=== PATIENT | female | born 1955 | race Caucasian/White ===

== ENCOUNTER 2019-02-06 17:35 | Inpatient (IN) | payer BC ==
[~2019-02-06] VITALS: Ht 172.7 cm; Wt 74.8 kg
[2019-02-06] MEDS ORDERED: SODIUM CHLORIDE 0.9% 1,000 ML IV ONE (19:53)
[2019-02-06] MEDS ORDERED: LORAZEPAM 0.5MG TABLET PO PRN (21:00)
[2019-02-06] MEDS ORDERED: CLONIDINE 0.1MG TABLET PO PRN (21:00)
[2019-02-06] MEDS ORDERED: ZOLPIDEM TARTRATE 5MG TABLET PO PRN (21:00)
[2019-02-06] MEDS ORDERED: MAGNESIUM/ALUMINUM HYDROXIDE/SIMETHICONE 30ML UDC PO PRN (21:00)
[2019-02-06] MEDS ORDERED: DOCUSATE SODIUM 100MG CAPSULE PO PRN (21:00)
[2019-02-06] MEDS ORDERED: GUAIFENESIN 200MG/10ML SUGAR FREE UDC PO PRN (21:00)
[2019-02-06] MEDS ORDERED: IPRATROPIUM/ALBUTEROL 0.5-3(2.5)MG/3ML NEB NEB PRN (21:00)
[2019-02-06] MEDS ORDERED: DIPHENHYDRAMINE 50MG/ML VIAL IV PRN (21:00)
[2019-02-06] MEDS ORDERED: NITROGLYCERIN 0.4MG TABLET SL SL PRN (21:00)
[2019-02-06] MEDS ORDERED: ACETAMINOPHEN 325MG TABLET PO PRN (21:00)
[2019-02-06] MEDS ORDERED: NA PHOS,M-B/NA PHOS,DI-BA ENEMA 118ML PR PRN (21:00)
[2019-02-06] MEDS ORDERED: ONDANSETRON HCL 4MG/2ML INJ IV ONE (21:30)
[2019-02-06] MEDS ORDERED: MORPHINE SULFATE 4 MG/ML CPJ (NOT FOR IM USE) IV ONE (21:30)
[2019-02-06 23:05] LABS: BASOPHILS % 0.7 % (0.0-2.0); EOSINOPHILS % 1.7 % (0.0-5.0); HEMATOCRIT. 51.2 % (36.0-48.0); HEMOGLOBIN. 16.7 g/dL (12.0-16.0); LYMPHOCYTES % 7.4 % (20.0-50.0); MEAN CORPUSCULAR HEMOGLOBIN 32.2 pg (28.0-32.0); MEAN CORPUSCULAR VOLUME 98.8 fL (81.0-99.0); MEAN PLATELET VOLUME 6.8 fl (7.4-10.4); MONOCYTES % 4.6 % (2.0-8.0); NEUTROPHILS % 85.6 % (40.0-76.0); PLATELET 475 x1000/uL (130-400); RED BLOOD CELL COUNT 5.18 mill/uL (4.2-5.4)
[2019-02-06 23:10] LABS: CHLORIDE 102 mEq/L (98-107)
[2019-02-06 23:12] LABS: INR 1.2; PARTIAL THROMBOPLASTIN TIME 28.2 sec (23.4-31.0); PROTHROMBIN TIME 12.7 sec (9.6-11.0)
[2019-02-07] VITALS: BP 122/77
[2019-02-07] MEDS: MORPHINE SULFATE 4 MG/ML CPJ (NOT FOR IM USE) IV PRN ×4 (01:30→20:02)
[2019-02-07 04:00] VITALS: BP 126/69
[2019-02-07] MEDS: HYDROCODONE/ACETAMINOPHEN 10/325MG TABLET PO PRN (04:33)
[2019-02-07] MEDS: KETOROLAC 15MG/ML VIAL IV PRN (07:31)
[2019-02-07] MEDS: ONDANSETRON HCL 4MG/2ML INJ IV PRN (07:31)
[2019-02-07 08:00] VITALS: BP 116/66
[2019-02-07] MEDS ORDERED: ARIP15TA7 PO (08:15)
[2019-02-07] MEDS ORDERED: BUSP15TA3 MT (08:17)
[2019-02-07] MEDS ORDERED: HYDR500C18 PO (08:23)
[2019-02-07] MEDS ORDERED: CLON1TAB23 MT (08:23)
[2019-02-07] MEDS ORDERED: VILA40TA PO (08:23)
[2019-02-07] MEDS ORDERED: FURO20TA4 PO (08:23)
[2019-02-07] MEDS ORDERED: DESV100T16 PO (08:23)
[2019-02-07] MEDS ORDERED: LAMO100T65 PO (08:23)
[2019-02-07] MEDS ORDERED: TRAZ-213 PO (08:23)
[2019-02-07] MEDS: ENOXAPARIN 40MG/0.4ML SYR SUBCUT SCH (08:24)
[2019-02-07] MEDS: FERROUS SULFATE 300MG/5ML UDC PO SCH ×3 (08:24→16:19)
[2019-02-07] MEDS ORDERED: IBUP-2030 PO (08:25)
[2019-02-07] MEDS: LAMOTRIGINE 100MG TABLET PO SCH ×2 (11:47→21:45)
[2019-02-07] MEDS: CLONAZEPAM 1MG TABLET PO SCH ×2 (11:47→21:45)
[2019-02-07] MEDS: VENLAFAXINE HCL 50MG TABLET PO SCH ×2 (11:47→16:19)
[2019-02-07] MEDS: BUSPIRONE HCL 5MG TABLET PO SCH ×2 (11:59→21:45)
[2019-02-07 12:00] VITALS: BP 126/73
[2019-02-07] MEDS ORDERED: HYDROXYUREA 500MG CAPSULE PO NR (12:00)
[2019-02-07 13:31] LABS: BASOPHILS % 0.7 % (0.0-2.0); EOSINOPHILS % 1.6 % (0.0-5.0); HEMATOCRIT. 52.6 % (36.0-48.0); HEMOGLOBIN. 17.1 g/dL (12.0-16.0); LYMPHOCYTES % 7.8 % (20.0-50.0); MEAN CORPUSCULAR HEMOGLOBIN 32.3 pg (28.0-32.0); MEAN CORPUSCULAR VOLUME 99.3 fL (81.0-99.0); MEAN PLATELET VOLUME 6.9 fl (7.4-10.4); MONOCYTES % 5.1 % (2.0-8.0); NEUTROPHILS % 84.8 % (40.0-76.0); PLATELET 389 x1000/uL (130-400)
[2019-02-07 13:48] LABS: CHLORIDE 104 mEq/L (98-107)
[2019-02-07 16:00] VITALS: BP 143/79
[2019-02-07 20:00] VITALS: BP 126/79
[2019-02-07] MEDS: TRAZODONE HCL 50MG TABLET PO SCH (21:00)
[2019-02-07] MEDS: FUROSEMIDE 20MG TABLET PO SCH (21:45)
[2019-02-07] MEDS: ARIPIPRAZOLE 5MG TABLET PO SCH (21:45)
[2019-02-08] VITALS: BP 108/59
[2019-02-08] MEDS: MORPHINE SULFATE 4 MG/ML CPJ (NOT FOR IM USE) IV PRN ×2 (01:19→05:59)
[2019-02-08 04:00] VITALS: BP 121/79
[2019-02-08 08:00] VITALS: BP 122/70
[2019-02-08] MEDS: CLONAZEPAM 1MG TABLET PO SCH ×2 (08:49→22:21)
[2019-02-08] MEDS: BUSPIRONE HCL 5MG TABLET PO SCH ×2 (08:49→22:20)
[2019-02-08] MEDS: VENLAFAXINE HCL 50MG TABLET PO SCH ×2 (08:49→19:15)
[2019-02-08] MEDS: ENOXAPARIN 40MG/0.4ML SYR SUBCUT SCH (09:00)
[2019-02-08] MEDS: HYDROXYUREA 500MG CAPSULE PO SCH (09:00)
[2019-02-08] MEDS: LAMOTRIGINE 100MG TABLET PO SCH ×2 (09:00→22:21)
[2019-02-08] MEDS: FUROSEMIDE 20MG TABLET PO SCH ×2 (09:00→22:21)
[2019-02-08] MEDS ORDERED: INFLUENZA VIRUS VACCINE(AFLURIA) 0.5ML SYR IM ONE (09:00)
[2019-02-08] MEDS: ARIPIPRAZOLE 5MG TABLET PO SCH (10:59)
[2019-02-08 12:00] VITALS: BP 123/69
[2019-02-08] MEDS ORDERED: ARIPIPRAZOLE 5MG TABLET PO SCH (12:00)
[2019-02-08] MEDS: FERROUS SULFATE 300MG/5ML UDC PO SCH ×3 (12:50→19:15)
[2019-02-08] MEDS ORDERED: BACITRACIN 15GM TUBE TOP ONE (15:14)
[2019-02-08] MEDS ORDERED: BUPIVACAINE HCL/PF 0.25% (2.5MG/ML) 10ML ONE (15:14)
[2019-02-08] MEDS ORDERED: VANCOMYCIN HCL 1 GM/VIAL ONE (15:15)
[2019-02-08] MEDS ORDERED: MIDAZOLAM HCL 2 MG/2 ML VIAL ONE (15:19)
[2019-02-08] MEDS ORDERED: FENTANYL CITRATE/PF 50MCG/ML 2ML VIAL ONE (15:19)
[2019-02-08] MEDS: DEXT 5%/0.9% NACL 1,000 ML IV SCH (15:26)
[2019-02-08] MEDS ORDERED: PROPOFOL 200MG/20ML VIAL IV ONE (16:09)
[2019-02-08] MEDS ORDERED: CEFAZOLIN SODIUM 1000MG/VIAL ONE (16:09)
[2019-02-08] MEDS ORDERED: LIDOCAINE HCL/PF 1% 10 MG/ML 5ML VIAL ONE (16:09)
[2019-02-08] MEDS ORDERED: ONDANSETRON HCL 4MG/2ML INJ ONE (16:27)
[2019-02-08] MEDS ORDERED: EPHEDRINE SULFATE 50MG/ML VIAL ONE (16:28)
[2019-02-08] MEDS ORDERED: SODIUM CHLORIDE 0.9% 1,000 ML IV SCH (17:09)
[2019-02-08] MEDS ORDERED: MORPHINE SULFATE 2 MG/ML CPJ (NOT FOR IM USE) IV PRN (17:15)
[2019-02-08 20:00] VITALS: BP 96/54
[2019-02-08] MEDS: HYDROCODONE/ACETAMINOPHEN 10/325MG TABLET PO PRN (20:32)
[2019-02-08] MEDS ORDERED: CEFAZOLIN SODIUM 1000MG/VIAL IV SCH (22:00)
[2019-02-08] MEDS: TRAZODONE HCL 50MG TABLET PO SCH (22:21)
[2019-02-09] VITALS: BP 91/50
[2019-02-09] MEDS: DEXT 5%/0.9% NACL 1,000 ML IV SCH ×3 (02:17→16:39)
[2019-02-09] MEDS: CEFAZOLIN 1000MG PREMIX 50 ML IV SCH ×4 (02:17→23:12)
[2019-02-09] MEDS: MORPHINE SULFATE 4 MG/ML CPJ (NOT FOR IM USE) IV PRN ×2 (03:57→08:44)
[2019-02-09 04:00] VITALS: BP 105/56
[2019-02-09] MEDS: ONDANSETRON HCL 4MG/2ML INJ IV PRN (07:27)
[2019-02-09] MEDS: KETOROLAC 15MG/ML VIAL IV PRN (07:27)
[2019-02-09] MEDS: HYDROCODONE/ACETAMINOPHEN 10/325MG TABLET PO PRN ×3 (07:35→18:13)
[2019-02-09 08:00] VITALS: BP 106/50
[2019-02-09] MEDS: HYDROXYUREA 500MG CAPSULE PO SCH (08:41)
[2019-02-09] MEDS: ARIPIPRAZOLE 5MG TABLET PO SCH (08:42)
[2019-02-09] MEDS: FERROUS SULFATE 300MG/5ML UDC PO SCH ×3 (08:42→17:47)
[2019-02-09] MEDS: VENLAFAXINE HCL 50MG TABLET PO SCH ×2 (08:42→16:39)
[2019-02-09] MEDS: FUROSEMIDE 20MG TABLET PO SCH ×2 (08:42→20:25)
[2019-02-09] MEDS: ENOXAPARIN 40MG/0.4ML SYR SUBCUT SCH (08:42)
[2019-02-09] MEDS: LAMOTRIGINE 100MG TABLET PO SCH ×2 (08:43→20:25)
[2019-02-09] MEDS: BUSPIRONE HCL 5MG TABLET PO SCH ×2 (08:43→20:24)
[2019-02-09] MEDS: CLONAZEPAM 1MG TABLET PO SCH (08:43)
[2019-02-09 12:00] VITALS: BP 103/48
[2019-02-09] MEDS ORDERED: CLONAZEPAM 1MG TABLET PO SCH (15:00)
[2019-02-09 16:00] VITALS: BP 120/78
[2019-02-09] MEDS: LACTULOSE 20G/30ML UDC PO SCH ×2 (16:39→20:26)
[2019-02-09] MEDS: DOCUSATE SODIUM 100MG CAPSULE PO SCH (16:40)
[2019-02-09] MEDS: POLYETHYLENE GLYCOL 3350 (17GM) 1 DOSE PACK PO SCH (17:47)
[2019-02-09 20:00] VITALS: BP 99/61
[2019-02-09] MEDS: TRAZODONE HCL 50MG TABLET PO SCH (20:24)
[2019-02-10] VITALS: BP 106/58
[2019-02-10] MEDS: HYDROCODONE/ACETAMINOPHEN 10/325MG TABLET PO PRN ×4 (00:55→21:25)
[2019-02-10] MEDS: DEXT 5%/0.9% NACL 1,000 ML IV SCH ×2 (03:29→12:15)
[2019-02-10] MEDS: KETOROLAC 15MG/ML VIAL IV PRN (03:30)
[2019-02-10 04:00] VITALS: BP 108/70
[2019-02-10] MEDS: PANTOPRAZOLE 40MG DR TABLET PO SCH (06:21)
[2019-02-10] MEDS: CLONAZEPAM 1MG TABLET PO SCH ×2 (06:21→17:06)
[2019-02-10 08:00] VITALS: BP 105/68
[2019-02-10] MEDS: LACTULOSE 20G/30ML UDC PO SCH ×4 (08:46→21:23)
[2019-02-10] MEDS: FERROUS SULFATE 300MG/5ML UDC PO SCH ×3 (08:46→17:06)
[2019-02-10] MEDS: ENOXAPARIN 40MG/0.4ML SYR SUBCUT SCH (08:46)
[2019-02-10] MEDS: FUROSEMIDE 20MG TABLET PO SCH ×2 (08:46→21:23)
[2019-02-10] MEDS: HYDROXYUREA 500MG CAPSULE PO SCH (08:46)
[2019-02-10] MEDS: CEFAZOLIN 1000MG PREMIX 50 ML IV SCH ×2 (08:46→16:00)
[2019-02-10] MEDS: ARIPIPRAZOLE 5MG TABLET PO SCH (08:47)
[2019-02-10] MEDS: BUSPIRONE HCL 5MG TABLET PO SCH ×2 (08:47→21:24)
[2019-02-10] MEDS: VENLAFAXINE HCL 50MG TABLET PO SCH ×2 (08:47→17:06)
[2019-02-10] MEDS: LAMOTRIGINE 100MG TABLET PO SCH ×2 (08:47→21:24)
[2019-02-10] MEDS: DOCUSATE SODIUM 100MG CAPSULE PO SCH ×2 (08:48→17:07)
[2019-02-10] MEDS: POLYETHYLENE GLYCOL 3350 (17GM) 1 DOSE PACK PO SCH (09:00)
[2019-02-10 12:00] VITALS: BP 119/78
[2019-02-10 12:59] LABS: HEMATOCRIT. 35.5 % (36.0-48.0); HEMOGLOBIN. 11.4 g/dL (12.0-16.0); MEAN CORPUSCULAR VOLUME 99.2 fL (81.0-99.0); MEAN PLATELET VOLUME 7.2 fl (7.4-10.4); PLATELET 385 x1000/uL (130-400); RED BLOOD CELL COUNT 3.58 mill/uL (4.2-5.4); RED CELL DISTRIBUTION WIDTH 14.6 % (11.6-14.6)
[2019-02-10 13:08] LABS: CHLORIDE 107 mEq/L (98-107)
[2019-02-10 14:08] LABS: PLATELET ESTIMATE NORMAL
[2019-02-10 16:00] VITALS: BP 120/74
[2019-02-10 20:00] VITALS: BP 105/66
[2019-02-10] MEDS: CEPHALEXIN 250MG CAPSULE PO SCH (21:24)
[2019-02-10] MEDS: TRAZODONE HCL 50MG TABLET PO SCH (21:24)
[2019-02-11] VITALS: BP 90/51
[2019-02-11 04:00] VITALS: BP 109/62
[2019-02-11] MEDS: CLONAZEPAM 1MG TABLET PO SCH ×2 (05:37→18:05)
[2019-02-11] MEDS: PANTOPRAZOLE 40MG DR TABLET PO SCH (05:37)
[2019-02-11] MEDS: CEPHALEXIN 250MG CAPSULE PO SCH ×3 (05:37→23:18)
[2019-02-11] MEDS: HYDROCODONE/ACETAMINOPHEN 10/325MG TABLET PO PRN ×3 (05:44→20:46)
[2019-02-11 08:00] VITALS: BP 101/61
[2019-02-11] MEDS: ENOXAPARIN 40MG/0.4ML SYR SUBCUT SCH (08:46)
[2019-02-11] MEDS: HYDROXYUREA 500MG CAPSULE PO SCH (08:46)
[2019-02-11] MEDS: VIIBRYD 40 MG PO SCH (08:46)
[2019-02-11] MEDS: ARIPIPRAZOLE 5MG TABLET PO SCH (08:46)
[2019-02-11] MEDS: FERROUS SULFATE 300MG/5ML UDC PO SCH ×3 (08:47→18:05)
[2019-02-11] MEDS: FUROSEMIDE 20MG TABLET PO SCH ×2 (08:48→20:46)
[2019-02-11] MEDS: POLYETHYLENE GLYCOL 3350 (17GM) 1 DOSE PACK PO SCH (08:48)
[2019-02-11] MEDS: LACTULOSE 20G/30ML UDC PO SCH ×2 (08:48→12:46)
[2019-02-11] MEDS: LAMOTRIGINE 100MG TABLET PO SCH ×2 (08:48→20:46)
[2019-02-11] MEDS: DOCUSATE SODIUM 100MG CAPSULE PO SCH ×2 (08:48→18:05)
[2019-02-11] MEDS: BUSPIRONE HCL 5MG TABLET PO SCH ×2 (08:49→20:45)
[2019-02-11] MEDS: VENLAFAXINE HCL 50MG TABLET PO SCH ×2 (08:49→18:05)
[2019-02-11 12:00] VITALS: BP 127/77
[2019-02-11] MEDS ORDERED: BISACODYL 10MG SUPP PR PRN (15:45)
[2019-02-11] MEDS ORDERED: SORBITOL 70% SOLN 30ML PO SCH (15:45)
[2019-02-11 16:00] VITALS: BP 112/73
[2019-02-11 18:38] LABS: CLARITY URINE CLEAR (CLEAR); COLOR URINE YELLOW (YELLOW); KETONES URINE TRACE (NEGATIVE); LEUKOCYTE ESTERASE URINE NEGATIVE (NEGATIVE); NITRITE URINE NEGATIVE (NEGATIVE); OCCULT BLOOD URINE NEGATIVE (NEGATIVE); PROTEIN URINE NEGATIVE (NEGATIVE); SPECIFIC GRAVITY URINE 1.016 (1.005-1.030)
[2019-02-11 20:00] VITALS: BP 117/72
[2019-02-11] MEDS: TRAZODONE HCL 50MG TABLET PO SCH (20:45)
[2019-02-11] MEDS ORDERED: HYDROCODONE/ACETAMINOPHEN 10/325MG TABLET PO PRN (23:45)
[2019-02-12] VITALS: BP 84/51
[2019-02-12 04:00] VITALS: BP 108/57
[2019-02-12] MEDS: PANTOPRAZOLE 40MG DR TABLET PO SCH (06:44)
[2019-02-12] MEDS: CLONAZEPAM 1MG TABLET PO SCH ×2 (06:44→18:29)
[2019-02-12] MEDS: CEPHALEXIN 250MG CAPSULE PO SCH ×3 (06:52→22:00)
[2019-02-12 07:21] LABS: BASOPHILS % 1.4 % (0.0-2.0); EOSINOPHILS % 1.9 % (0.0-5.0); HEMATOCRIT. 32.6 % (36.0-48.0); HEMOGLOBIN. 10.6 g/dL (12.0-16.0); LYMPHOCYTES % 7.8 % (20.0-50.0); MEAN CORPUSCULAR HEMOGLOBIN 32.3 pg (28.0-32.0); MEAN CORPUSCULAR VOLUME 99.1 fL (81.0-99.0); MEAN PLATELET VOLUME 6.7 fl (7.4-10.4); MONOCYTES % 5.1 % (2.0-8.0); NEUTROPHILS % 83.8 % (40.0-76.0); PLATELET 525 x1000/uL (130-400); RED BLOOD CELL COUNT 3.29 mill/uL (4.2-5.4); RED CELL DISTRIBUTION WIDTH 14.4 % (11.6-14.6)
[2019-02-12 07:26] LABS: CHLORIDE 103 mEq/L (98-107)
[2019-02-12 07:39] LABS: FERRITIN 495 ng/mL (10-291)
[2019-02-12 07:48] LABS: PHOSPHORUS 3.6 mg/dL (2.5-4.9); TOTAL IRON BINDING CAPACITY 201 ug/dL (250-450)
[2019-02-12 07:52] LABS: VITAMIN B12 SERUM 1075 pg/mL (211-911)
[2019-02-12 07:54] LABS: FOLIC ACID (FOLATE) SERUM > 20.00 ng/mL (>5.38)
[2019-02-12 08:00] VITALS: BP 107/70
[2019-02-12] MEDS: HYDROXYUREA 500MG CAPSULE PO SCH (09:00)
[2019-02-12] MEDS: FERROUS SULFATE 300MG/5ML UDC PO SCH ×3 (09:00→18:28)
[2019-02-12] MEDS: POLYETHYLENE GLYCOL 3350 (17GM) 1 DOSE PACK PO SCH (09:00)
[2019-02-12] MEDS: VIIBRYD 40 MG PO SCH (09:00)
[2019-02-12] MEDS: BUSPIRONE HCL 5MG TABLET PO SCH (09:01)
[2019-02-12] MEDS: DOCUSATE SODIUM 100MG CAPSULE PO SCH ×2 (09:01→18:29)
[2019-02-12] MEDS: VENLAFAXINE HCL 50MG TABLET PO SCH ×2 (09:01→18:30)
[2019-02-12] MEDS: LAMOTRIGINE 100MG TABLET PO SCH ×2 (09:01→22:00)
[2019-02-12] MEDS: ARIPIPRAZOLE 5MG TABLET PO SCH (09:01)
[2019-02-12] MEDS: FUROSEMIDE 20MG TABLET PO SCH ×2 (09:01→21:59)
[2019-02-12 12:00] VITALS: BP 121/71
[2019-02-12] MEDS ORDERED: HYDROCODONE/ACETAMINOPHEN 10/325MG TABLET PO PRN (13:00)
[2019-02-12 16:00] VITALS: BP 96/52
[2019-02-12] MEDS ORDERED: NA PHOS,M-B/NA PHOS,DI-BA ENEMA 118ML PR NR (17:30)
[2019-02-12 20:24] VITALS: BP 112/55
[2019-02-12] MEDS: TRAZODONE HCL 50MG TABLET PO SCH (21:59)
[2019-02-12] MEDS: FAMOTIDINE 20MG TABLET PO SCH (21:59)
[2019-02-13] VITALS: BP 106/59
[2019-02-13 04:00] VITALS: BP 102/73
[2019-02-13] MEDS: CEPHALEXIN 250MG CAPSULE PO SCH ×3 (06:22→20:25)
[2019-02-13] MEDS: CLONAZEPAM 1MG TABLET PO SCH ×2 (06:23→17:56)
[2019-02-13 08:00] VITALS: BP 124/69
[2019-02-13] MEDS: POLYETHYLENE GLYCOL 3350 (17GM) 1 DOSE PACK PO SCH (09:00)
[2019-02-13] MEDS: VIIBRYD 40 MG PO SCH (09:15)
[2019-02-13] MEDS: LAMOTRIGINE 100MG TABLET PO SCH ×2 (09:15→20:24)
[2019-02-13] MEDS: HYDROXYUREA 500MG CAPSULE PO SCH (09:15)
[2019-02-13] MEDS: FERROUS SULFATE 300MG/5ML UDC PO SCH ×3 (09:15→17:56)
[2019-02-13] MEDS: VENLAFAXINE HCL 50MG TABLET PO SCH ×2 (09:15→17:57)
[2019-02-13] MEDS: FUROSEMIDE 20MG TABLET PO SCH ×2 (09:15→20:24)
[2019-02-13] MEDS: FAMOTIDINE 20MG TABLET PO SCH ×2 (09:16→20:24)
[2019-02-13] MEDS: ARIPIPRAZOLE 5MG TABLET PO SCH (09:16)
[2019-02-13] MEDS: DOCUSATE SODIUM 100MG CAPSULE PO SCH ×2 (09:16→17:56)
[2019-02-13] MEDS: OXYCODONE HCL 5MG TABLET PO PRN ×2 (11:15→15:13)
[2019-02-13 12:00] VITALS: BP 98/68
[2019-02-13 16:00] VITALS: BP 108/61
[2019-02-13] MEDS: MAGNESIUM OXIDE 400MG TABLET PO SCH ×2 (17:56→18:17)
[2019-02-13 20:00] VITALS: BP 103/65
[2019-02-13] MEDS: TRAZODONE HCL 50MG TABLET PO SCH (20:24)
[2019-02-14] VITALS: BP 110/70
[2019-02-14] MEDS: OXYCODONE HCL 5MG TABLET PO PRN ×2 (00:45→11:43)
[2019-02-14 04:00] VITALS: BP 114/70
[2019-02-14] MEDS: CLONAZEPAM 1MG TABLET PO SCH ×2 (05:44→17:54)
[2019-02-14] MEDS: MAGNESIUM OXIDE 400MG TABLET PO SCH ×2 (05:44→17:53)
[2019-02-14] MEDS: CEPHALEXIN 250MG CAPSULE PO SCH ×3 (05:44→21:05)
[2019-02-14 07:21] LABS: BASOPHILS % 1.9 % (0.0-2.0); EOSINOPHILS % 2.3 % (0.0-5.0); HEMATOCRIT. 31.3 % (36.0-48.0); HEMOGLOBIN. 10.2 g/dL (12.0-16.0); LYMPHOCYTES % 8.6 % (20.0-50.0); MEAN CORPUSCULAR HEMOGLOBIN 31.9 pg (28.0-32.0); MEAN PLATELET VOLUME 6.7 fl (7.4-10.4); MONOCYTES % 4.7 % (2.0-8.0); NEUTROPHILS % 82.5 % (40.0-76.0); PLATELET 538 x1000/uL (130-400); RED CELL DISTRIBUTION WIDTH 14.4 % (11.6-14.6)
[2019-02-14 07:33] LABS: CHLORIDE 104 mEq/L (98-107)
[2019-02-14 07:39] LABS: PHOSPHORUS 3.5 mg/dL (2.5-4.9)
[2019-02-14 08:00] VITALS: BP 108/62
[2019-02-14] MEDS: HYDROXYUREA 500MG CAPSULE PO SCH (08:48)
[2019-02-14] MEDS: DOCUSATE SODIUM 100MG CAPSULE PO SCH ×2 (08:48→17:00)
[2019-02-14] MEDS: FUROSEMIDE 20MG TABLET PO SCH ×2 (08:49→21:05)
[2019-02-14] MEDS: VENLAFAXINE HCL 50MG TABLET PO SCH ×2 (08:49→17:53)
[2019-02-14] MEDS: POLYETHYLENE GLYCOL 3350 (17GM) 1 DOSE PACK PO SCH (08:49)
[2019-02-14] MEDS: FERROUS SULFATE 300MG/5ML UDC PO SCH ×3 (08:49→17:53)
[2019-02-14] MEDS: FAMOTIDINE 20MG TABLET PO SCH ×2 (08:49→21:05)
[2019-02-14] MEDS: LAMOTRIGINE 100MG TABLET PO SCH ×2 (08:49→21:05)
[2019-02-14] MEDS: VIIBRYD 40 MG PO SCH (08:49)
[2019-02-14] MEDS: ARIPIPRAZOLE 5MG TABLET PO SCH (08:49)
[2019-02-14 12:00] VITALS: BP 99/59
[2019-02-14] MEDS ORDERED: ACETAMINOPHEN 325MG TABLET PO PRN (13:00)
[2019-02-14 16:00] VITALS: BP 98/65
[2019-02-14 20:00] VITALS: BP 122/78
[2019-02-14] MEDS: TRAZODONE HCL 50MG TABLET PO SCH (21:04)
[2019-02-15] VITALS: BP 103/65
[2019-02-15 04:00] VITALS: BP 121/69
[2019-02-15] MEDS: CEPHALEXIN 250MG CAPSULE PO SCH ×3 (05:57→22:10)
[2019-02-15] MEDS: CLONAZEPAM 1MG TABLET PO SCH (05:58)
[2019-02-15 08:00] VITALS: BP 116/61
[2019-02-15] MEDS: FERROUS SULFATE 300MG/5ML UDC PO SCH ×3 (08:42→17:29)
[2019-02-15] MEDS: VENLAFAXINE HCL 50MG TABLET PO SCH ×2 (08:42→17:28)
[2019-02-15] MEDS: VIIBRYD 40 MG PO SCH (08:42)
[2019-02-15] MEDS: FAMOTIDINE 20MG TABLET PO SCH ×2 (08:42→20:48)
[2019-02-15] MEDS: FUROSEMIDE 20MG TABLET PO SCH ×2 (08:43→20:48)
[2019-02-15] MEDS: DOCUSATE SODIUM 100MG CAPSULE PO SCH ×2 (08:43→17:28)
[2019-02-15] MEDS: LAMOTRIGINE 100MG TABLET PO SCH ×2 (08:43→20:48)
[2019-02-15] MEDS: POLYETHYLENE GLYCOL 3350 (17GM) 1 DOSE PACK PO SCH (09:00)
[2019-02-15] MEDS: HYDROXYUREA 500MG CAPSULE PO SCH (09:15)
[2019-02-15] MEDS: ARIPIPRAZOLE 5MG TABLET PO SCH (09:15)
[2019-02-15 12:00] VITALS: BP 106/62
[2019-02-15] MEDS: OXYCODONE HCL 5MG TABLET PO PRN ×2 (12:56→17:29)
[2019-02-15 16:00] VITALS: BP 100/61
[2019-02-15 20:00] VITALS: BP 111/72
[2019-02-15] MEDS: TRAZODONE HCL 50MG TABLET PO SCH (20:48)
[2019-02-15] MEDS: CLONAZEPAM 0.5MG TABLET PO SCH (22:10)
[2019-02-16] VITALS: BP 105/59
[2019-02-16 04:00] VITALS: BP 116/70
[2019-02-16] MEDS: CEPHALEXIN 250MG CAPSULE PO SCH ×2 (06:30→13:58)
[2019-02-16 06:33] LABS: BASOPHILS % 0.9 % (0.0-2.0); EOSINOPHILS % 1.8 % (0.0-5.0); HEMATOCRIT. 24.7 % (36.0-48.0); HEMOGLOBIN. 8.2 g/dL (12.0-16.0); MEAN CORPUSCULAR VOLUME 99.5 fL (81.0-99.0); MEAN PLATELET VOLUME 7.9 fl (7.4-10.4); MONOCYTES % 4.6 % (2.0-8.0); NEUTROPHILS % 82.7 % (40.0-76.0); PLATELET 208 x1000/uL (130-400); RED BLOOD CELL COUNT 2.48 mill/uL (4.2-5.4)
[2019-02-16 08:00] VITALS: BP 125/74
[2019-02-16 08:50] LABS: CHLORIDE 104 mEq/L (98-107)
[2019-02-16 08:51] LABS: PHOSPHORUS 3.3 mg/dL (2.5-4.9)
[2019-02-16] MEDS: VIIBRYD 40 MG PO SCH (09:32)
[2019-02-16] MEDS: POLYETHYLENE GLYCOL 3350 (17GM) 1 DOSE PACK PO SCH (09:32)
[2019-02-16] MEDS: HYDROXYUREA 500MG CAPSULE PO SCH (09:32)
[2019-02-16] MEDS: ARIPIPRAZOLE 5MG TABLET PO SCH (09:33)
[2019-02-16] MEDS: DOCUSATE SODIUM 100MG CAPSULE PO SCH (09:33)
[2019-02-16] MEDS: FAMOTIDINE 20MG TABLET PO SCH (09:33)
[2019-02-16] MEDS: LAMOTRIGINE 100MG TABLET PO SCH (09:33)
[2019-02-16] MEDS: FUROSEMIDE 20MG TABLET PO SCH (09:33)
[2019-02-16] MEDS: CLONAZEPAM 0.5MG TABLET PO SCH (09:33)
[2019-02-16] MEDS: VENLAFAXINE HCL 50MG TABLET PO SCH (09:33)
[2019-02-16] MEDS: FERROUS SULFATE 300MG/5ML UDC PO SCH ×2 (09:33→13:58)
[2019-02-16] MEDS: OXYCODONE HCL 5MG TABLET PO PRN ×2 (10:28→16:09)
[2019-02-16 12:00] VITALS: BP_SYST 117; BP_SYST 121; BP_DIAS 64; BP_DIAS 74
[2019-02-16 16:00] VITALS: BP 117/64
[2019-02-16 17:20] VITALS: BP 117/64
[2019-02-17 04:07] LABS: 25-HYDROXY VITAMIN D3 22 ng/mL (.)
== END 2019-02-16 18:08 | DRG 480 ==
LOC: ER 17:35 → 6EST 20:42 → EDBEDREQSVC 20:46 → EDBEDREQ 20:46 → EDBEDREQTM 20:46 → SUPCPDRO 20:54 → ENRESERV 21:26
PROVIDERS: ADMIT Internal Medicine; ATTEND Internal Medicine
PROC: 0QH634Z Insertion of Internal Fixation Device into Right Upper Femur, Percutaneous Approach (ICD-10-PCS; principal; 2019-02-08)
DX: S72.011A Unspecified intracapsular fracture of right femur, initial encounter for closed fracture (principal); E43 Unspecified severe protein-calorie malnutrition; D62 Acute posthemorrhagic anemia; F32.9 Major depressive disorder, single episode, unspecified; D72.829 Elevated white blood cell count, unspecified; E83.51 Hypocalcemia; D45 Polycythemia vera; F41.9 Anxiety disorder, unspecified; R50.82 Postprocedural fever; W01.0XXA Fall on same level from slipping, tripping and stumbling without subsequent striking against object, initial encounter; Z90.710 Acquired absence of both cervix and uterus; Z68.25 Body mass index [BMI] 25.0-25.9, adult; Y93.89 Activity, other specified; Y92.89 Other specified places as the place of occurrence of the external cause; Y99.8 Other external cause status; Z98.84 Bariatric surgery status
CPT/HCPCS: 36415; 71045; 72192; 73501; 73502; 73552; 73700; 76000; 81003; 82306; 82607; 82728; 82746; 83036; 83540; 83550; 83735; 84100; 84443; 84484; 86850; 86900; 90686; 93005; 93970; 97110; 97116; 97162; 97166; 97535; 99285; C1893; J0690; J1650; J1885; J2250; J2270; J2405; J2704; J3010; J3370; J3490; J7030; J7042

== ENCOUNTER 2019-02-16 18:21 | Inpatient (IN) | payer BC ==
[~2019-02-16] VITALS: Ht 172.7 cm; Wt 74.8 kg
[~2019-02-16 18:21] MED LIST: ARIP15TA7 PO; BUSP15TA3 MT; CLON1TAB23 MT; DESV100T16 PO; FURO20TA4 PO; HYDR500C18 PO; IBUP-2030 PO; LAMO100T65 PO; TRAZ-213 PO; VILA40TA PO
[2019-02-16] MEDS ORDERED: GUAIFENESIN 200MG/10ML SUGAR FREE UDC PO PRN (19:00)
[2019-02-16] MEDS ORDERED: BISACODYL 10MG SUPP PR PRN (19:00)
[2019-02-16] MEDS ORDERED: ACETAMINOPHEN 325MG TABLET PO PRN (19:00)
[2019-02-16] MEDS ORDERED: DOCUSATE SODIUM 100MG CAPSULE PO PRN (19:00)
[2019-02-16] MEDS ORDERED: IPRATROPIUM/ALBUTEROL 0.5-3(2.5)MG/3ML NEB HHN PRN (19:00)
[2019-02-16] MEDS ORDERED: CLONIDINE 0.1MG TABLET PO PRN (19:00)
[2019-02-16] MEDS ORDERED: ONDANSETRON HCL 4MG/2ML INJ IV PRN (19:00)
[2019-02-16] MEDS ORDERED: MAGNESIUM/ALUMINUM HYDROXIDE/SIMETHICONE 30ML UDC PO PRN (19:00)
[2019-02-16] MEDS ORDERED: NITROGLYCERIN 0.4MG TABLET SL SL PRN (19:00)
[2019-02-16] MEDS ORDERED: DIPHENHYDRAMINE 50MG/ML VIAL IV PRN (19:38)
[2019-02-16 20:00] VITALS: BP 107/69
[2019-02-16] MEDS: LAMOTRIGINE 100MG TABLET PO SCH (21:00)
[2019-02-16] MEDS ORDERED: NA PHOS,M-B/NA PHOS,DI-BA ENEMA 118ML PR PRN (21:00)
[2019-02-16] MEDS: CEPHALEXIN 250MG CAPSULE PO SCH (22:11)
[2019-02-16] MEDS: CLONAZEPAM 0.5MG TABLET PO SCH (22:12)
[2019-02-16] MEDS: FAMOTIDINE 20MG TABLET PO SCH (22:13)
[2019-02-16] MEDS: TRAZODONE HCL 50MG TABLET PO SCH (22:13)
[2019-02-16] MEDS: FUROSEMIDE 20MG TABLET PO SCH (22:14)
[2019-02-17] MEDS: CEPHALEXIN 250MG CAPSULE PO SCH ×3 (06:48→21:25)
[2019-02-17 08:00] VITALS: BP 123/78
[2019-02-17] MEDS: FUROSEMIDE 20MG TABLET PO SCH ×2 (08:42→21:25)
[2019-02-17] MEDS: FAMOTIDINE 20MG TABLET PO SCH ×2 (08:42→21:26)
[2019-02-17] MEDS: FERROUS SULFATE 325MG TABLET PO SCH ×3 (08:42→16:28)
[2019-02-17] MEDS: VENLAFAXINE HCL 50MG TABLET PO SCH ×2 (08:42→16:25)
[2019-02-17] MEDS: CLONAZEPAM 0.5MG TABLET PO SCH ×2 (08:43→21:25)
[2019-02-17] MEDS: DOCUSATE SODIUM 100MG CAPSULE PO SCH ×2 (08:43→16:25)
[2019-02-17] MEDS: ARIPIPRAZOLE 5MG TABLET PO SCH (08:43)
[2019-02-17] MEDS: HYDROXYUREA 500MG CAPSULE PO SCH (08:44)
[2019-02-17] MEDS: POLYETHYLENE GLYCOL 3350 (17GM) 1 DOSE PACK PO SCH (08:44)
[2019-02-17] MEDS: LAMOTRIGINE 100MG TABLET PO SCH ×2 (08:46→21:26)
[2019-02-17] MEDS: OXYCODONE HCL 5MG TABLET PO PRN ×2 (09:41→14:24)
[2019-02-17 16:19] LABS: CHLORIDE 102 mEq/L (98-107)
[2019-02-17] MEDS: ERGOCALCIFEROL 50000UNITS CAPSULE PO SCH (16:25)
[2019-02-17 16:35] LABS: HEMATOCRIT. 35.1 % (36.0-48.0); HEMOGLOBIN. 11.2 g/dL (12.0-16.0); MEAN CORPUSCULAR HEMOGLOBIN 31.3 pg (28.0-32.0); MEAN CORPUSCULAR VOLUME 98.1 fL (81.0-99.0); MEAN PLATELET VOLUME 6.9 fl (7.4-10.4); PLATELET 629 x1000/uL (130-400); RED BLOOD CELL COUNT 3.58 mill/uL (4.2-5.4); RED CELL DISTRIBUTION WIDTH 14.1 % (11.6-14.6)
[2019-02-17 20:00] VITALS: BP 107/63
[2019-02-17 21:25] LABS: PLATELET ESTIMATE INCREASED
[2019-02-17] MEDS: TRAZODONE HCL 50MG TABLET PO SCH (21:25)
[2019-02-18] MEDS: CEPHALEXIN 250MG CAPSULE PO SCH ×3 (06:18→22:02)
[2019-02-18 07:00] LABS: BASOPHILS % 3.9 % (0.0-2.0); EOSINOPHILS % 2.5 % (0.0-5.0); HEMATOCRIT. 32.5 % (36.0-48.0); HEMOGLOBIN. 10.5 g/dL (12.0-16.0); LYMPHOCYTES % 8.3 % (20.0-50.0); MEAN CORPUSCULAR HEMOGLOBIN 32.1 pg (28.0-32.0); MEAN CORPUSCULAR VOLUME 99.6 fL (81.0-99.0); MONOCYTES % 5.1 % (2.0-8.0); NEUTROPHILS % 80.2 % (40.0-76.0); PLATELET 538 x1000/uL (130-400); RED BLOOD CELL COUNT 3.26 mill/uL (4.2-5.4); RED CELL DISTRIBUTION WIDTH 14.2 % (11.6-14.6)
[2019-02-18 07:30] LABS: CHLORIDE 104 mEq/L (98-107)
[2019-02-18 07:46] LABS: PHOSPHORUS 3.4 mg/dL (2.5-4.9)
[2019-02-18] MEDS: OXYCODONE HCL 5MG TABLET PO PRN ×2 (07:48→12:23)
[2019-02-18 08:28] VITALS: BP 118/71
[2019-02-18] MEDS: VENLAFAXINE HCL 50MG TABLET PO SCH ×2 (08:38→16:06)
[2019-02-18] MEDS: LAMOTRIGINE 100MG TABLET PO SCH ×2 (08:38→22:02)
[2019-02-18] MEDS: FAMOTIDINE 20MG TABLET PO SCH ×2 (08:38→20:16)
[2019-02-18] MEDS: FERROUS SULFATE 325MG TABLET PO SCH ×3 (08:38→16:06)
[2019-02-18] MEDS: ARIPIPRAZOLE 5MG TABLET PO SCH (08:39)
[2019-02-18] MEDS: DOCUSATE SODIUM 100MG CAPSULE PO SCH ×2 (08:39→16:06)
[2019-02-18] MEDS: FUROSEMIDE 20MG TABLET PO SCH ×2 (08:39→20:15)
[2019-02-18] MEDS: CLONAZEPAM 0.5MG TABLET PO SCH ×2 (08:43→20:16)
[2019-02-18] MEDS: HYDROXYUREA 500MG CAPSULE PO SCH (08:43)
[2019-02-18] MEDS: POLYETHYLENE GLYCOL 3350 (17GM) 1 DOSE PACK PO SCH (08:48)
[2019-02-18] MEDS ORDERED: NON FORMULARY PATIENT HOME MED XX SCH (13:30)
[2019-02-18] MEDS: VILAZODONE 40 MG XX SCH (16:06)
[2019-02-18 20:00] VITALS: BP 118/68
[2019-02-18] MEDS: TRAZODONE HCL 50MG TABLET PO SCH (20:16)
[2019-02-19] MEDS: CEPHALEXIN 250MG CAPSULE PO SCH ×3 (06:48→21:19)
[2019-02-19] MEDS: OXYCODONE HCL 5MG TABLET PO PRN ×2 (07:30→13:36)
[2019-02-19 08:08] VITALS: BP 123/75
[2019-02-19] MEDS: FAMOTIDINE 20MG TABLET PO SCH ×2 (09:42→20:32)
[2019-02-19] MEDS: VENLAFAXINE HCL 50MG TABLET PO SCH ×2 (09:42→16:55)
[2019-02-19] MEDS: ARIPIPRAZOLE 5MG TABLET PO SCH (09:42)
[2019-02-19] MEDS: CLONAZEPAM 0.5MG TABLET PO SCH ×2 (09:43→20:32)
[2019-02-19] MEDS: FUROSEMIDE 20MG TABLET PO SCH ×2 (09:43→20:33)
[2019-02-19] MEDS: DOCUSATE SODIUM 100MG CAPSULE PO SCH ×2 (09:43→16:55)
[2019-02-19] MEDS: FERROUS SULFATE 325MG TABLET PO SCH ×3 (09:43→16:55)
[2019-02-19] MEDS: LAMOTRIGINE 100MG TABLET PO SCH ×2 (09:43→20:33)
[2019-02-19] MEDS: HYDROXYUREA 500MG CAPSULE PO SCH (10:10)
[2019-02-19] MEDS: VILAZODONE 40 MG XX SCH (10:10)
[2019-02-19] MEDS: POLYETHYLENE GLYCOL 3350 (17GM) 1 DOSE PACK PO SCH (10:10)
[2019-02-19] MEDS ORDERED: DIPHENHYDRAMINE 25MG CAPSULE PO PRN (10:30)
[2019-02-19 20:00] VITALS: BP 113/70
[2019-02-19] MEDS: TRAZODONE HCL 50MG TABLET PO SCH (20:32)
[2019-02-20] MEDS: OXYCODONE HCL 5MG TABLET PO PRN ×2 (06:29→11:10)
[2019-02-20] MEDS: CEPHALEXIN 250MG CAPSULE PO SCH ×3 (06:29→20:44)
[2019-02-20 08:07] VITALS: BP 107/61
[2019-02-20] MEDS: HYDROXYUREA 500MG CAPSULE PO SCH (09:22)
[2019-02-20] MEDS: VILAZODONE 40 MG XX SCH (09:22)
[2019-02-20] MEDS: POLYETHYLENE GLYCOL 3350 (17GM) 1 DOSE PACK PO SCH (09:23)
[2019-02-20] MEDS: CLONAZEPAM 0.5MG TABLET PO SCH ×2 (09:24→20:04)
[2019-02-20] MEDS: ARIPIPRAZOLE 5MG TABLET PO SCH (09:25)
[2019-02-20] MEDS: DOCUSATE SODIUM 100MG CAPSULE PO SCH ×2 (09:26→16:32)
[2019-02-20] MEDS: VENLAFAXINE HCL 50MG TABLET PO SCH ×2 (09:27→16:32)
[2019-02-20] MEDS: FERROUS SULFATE 325MG TABLET PO SCH ×3 (09:27→16:32)
[2019-02-20] MEDS: FUROSEMIDE 20MG TABLET PO SCH ×2 (09:27→20:04)
[2019-02-20] MEDS: FAMOTIDINE 20MG TABLET PO SCH ×2 (09:27→20:05)
[2019-02-20] MEDS: LAMOTRIGINE 100MG TABLET PO SCH ×2 (09:34→20:04)
[2019-02-20 20:00] VITALS: BP 106/61
[2019-02-20] MEDS: TRAZODONE HCL 50MG TABLET PO SCH (20:04)
[2019-02-21] MEDS: CEPHALEXIN 250MG CAPSULE PO SCH ×3 (06:30→21:04)
[2019-02-21 07:45] LABS: HEMATOCRIT. 34.5 % (36.0-48.0); HEMOGLOBIN. 11.1 g/dL (12.0-16.0); MEAN CORPUSCULAR HEMOGLOBIN 31.5 pg (28.0-32.0); MEAN PLATELET VOLUME 6.9 fl (7.4-10.4); PLATELET 570 x1000/uL (130-400); RED BLOOD CELL COUNT 3.53 mill/uL (4.2-5.4); RED CELL DISTRIBUTION WIDTH 14.4 % (11.6-14.6)
[2019-02-21 07:50] LABS: CHLORIDE 106 mEq/L (98-107)
[2019-02-21 08:00] VITALS: BP 112/71
[2019-02-21 08:09] LABS: PHOSPHORUS 3.8 mg/dL (2.5-4.9)
[2019-02-21] MEDS: DOCUSATE SODIUM 100MG CAPSULE PO SCH ×2 (09:00→16:26)
[2019-02-21] MEDS: POLYETHYLENE GLYCOL 3350 (17GM) 1 DOSE PACK PO SCH (09:00)
[2019-02-21] MEDS: VENLAFAXINE HCL 50MG TABLET PO SCH ×2 (09:29→16:26)
[2019-02-21] MEDS: FAMOTIDINE 20MG TABLET PO SCH ×2 (09:30→20:00)
[2019-02-21] MEDS: CLONAZEPAM 0.5MG TABLET PO SCH ×2 (09:30→20:00)
[2019-02-21] MEDS: ARIPIPRAZOLE 5MG TABLET PO SCH (09:30)
[2019-02-21] MEDS: LAMOTRIGINE 100MG TABLET PO SCH ×2 (09:30→20:00)
[2019-02-21] MEDS: FERROUS SULFATE 325MG TABLET PO SCH ×3 (09:30→16:25)
[2019-02-21] MEDS: HYDROXYUREA 500MG CAPSULE PO SCH (09:30)
[2019-02-21] MEDS: FUROSEMIDE 20MG TABLET PO SCH ×2 (09:30→20:00)
[2019-02-21] MEDS: VILAZODONE 40 MG XX SCH (09:31)
[2019-02-21 10:37] LABS: PLATELET ESTIMATE INCREASED
[2019-02-21 20:00] VITALS: BP 97/62
[2019-02-21] MEDS: TRAZODONE HCL 50MG TABLET PO SCH (20:00)
[2019-02-22] MEDS: CEPHALEXIN 250MG CAPSULE PO SCH ×3 (06:53→21:48)
[2019-02-22 08:00] VITALS: BP 113/60
[2019-02-22] MEDS: ARIPIPRAZOLE 5MG TABLET PO SCH (08:44)
[2019-02-22] MEDS: FUROSEMIDE 20MG TABLET PO SCH ×2 (08:44→21:00)
[2019-02-22] MEDS: FAMOTIDINE 20MG TABLET PO SCH ×2 (08:45→21:52)
[2019-02-22] MEDS: FERROUS SULFATE 325MG TABLET PO SCH ×3 (08:45→16:36)
[2019-02-22] MEDS: VENLAFAXINE HCL 50MG TABLET PO SCH ×2 (08:45→16:36)
[2019-02-22] MEDS: DOCUSATE SODIUM 100MG CAPSULE PO SCH ×2 (08:45→16:36)
[2019-02-22] MEDS: HYDROXYUREA 500MG CAPSULE PO SCH (08:45)
[2019-02-22] MEDS: VILAZODONE 40 MG XX SCH (08:45)
[2019-02-22] MEDS: LAMOTRIGINE 100MG TABLET PO SCH ×2 (08:45→21:48)
[2019-02-22] MEDS: POLYETHYLENE GLYCOL 3350 (17GM) 1 DOSE PACK PO SCH (08:48)
[2019-02-22] MEDS: CLONAZEPAM 0.5MG TABLET PO SCH ×2 (13:15→21:00)
[2019-02-22 20:00] VITALS: BP 120/81
[2019-02-22] MEDS: TRAZODONE HCL 50MG TABLET PO SCH (21:48)
[2019-02-23] MEDS: CEPHALEXIN 250MG CAPSULE PO SCH ×3 (06:05→20:56)
[2019-02-23] MEDS: OXYCODONE HCL 5MG TABLET PO PRN ×2 (07:53→14:30)
[2019-02-23 08:00] VITALS: BP 114/70
[2019-02-23] MEDS: CLONAZEPAM 0.5MG TABLET PO SCH ×2 (09:00→20:57)
[2019-02-23] MEDS ORDERED: OXYC-662 MT (09:12)
[2019-02-23] MEDS ORDERED: ERGO50CA PO (09:12)
[2019-02-23] MEDS ORDERED: FERR325T6 MT (09:12)
[2019-02-23] MEDS ORDERED: SENN-170 MT (09:12)
[2019-02-23] MEDS: VENLAFAXINE HCL 50MG TABLET PO SCH ×2 (10:06→16:42)
[2019-02-23] MEDS: DOCUSATE SODIUM 100MG CAPSULE PO SCH ×2 (10:06→16:42)
[2019-02-23] MEDS: FUROSEMIDE 20MG TABLET PO SCH ×2 (10:06→20:57)
[2019-02-23] MEDS: LAMOTRIGINE 100MG TABLET PO SCH ×2 (10:07→20:56)
[2019-02-23] MEDS: ARIPIPRAZOLE 5MG TABLET PO SCH (10:07)
[2019-02-23] MEDS: FAMOTIDINE 20MG TABLET PO SCH ×2 (10:08→20:56)
[2019-02-23] MEDS: FERROUS SULFATE 325MG TABLET PO SCH ×3 (10:08→16:42)
[2019-02-23] MEDS: HYDROXYUREA 500MG CAPSULE PO SCH (10:08)
[2019-02-23] MEDS: POLYETHYLENE GLYCOL 3350 (17GM) 1 DOSE PACK PO SCH (10:09)
[2019-02-23] MEDS: VILAZODONE 40 MG XX SCH (10:09)
[2019-02-23 20:00] VITALS: BP 125/69
[2019-02-23] MEDS: TRAZODONE HCL 50MG TABLET PO SCH (20:56)
[2019-02-24 06:50] LABS: HEMATOCRIT. 34.6 % (36.0-48.0); HEMOGLOBIN. 11.2 g/dL (12.0-16.0); MEAN CORPUSCULAR HEMOGLOBIN 31.8 pg (28.0-32.0); MEAN CORPUSCULAR VOLUME 98.4 fL (81.0-99.0); MEAN PLATELET VOLUME 7.1 fl (7.4-10.4); PLATELET 522 x1000/uL (130-400); RED BLOOD CELL COUNT 3.52 mill/uL (4.2-5.4); RED CELL DISTRIBUTION WIDTH 14.6 % (11.6-14.6)
[2019-02-24 08:00] VITALS: BP 120/65
[2019-02-24] MEDS: CLONAZEPAM 0.5MG TABLET PO SCH ×2 (08:01→20:26)
[2019-02-24] MEDS: OXYCODONE HCL 5MG TABLET PO PRN (08:01)
[2019-02-24 08:03] VITALS: BP 120/65
[2019-02-24] MEDS: POLYETHYLENE GLYCOL 3350 (17GM) 1 DOSE PACK PO SCH (09:00)
[2019-02-24] MEDS: LAMOTRIGINE 100MG TABLET PO SCH ×2 (09:02→20:25)
[2019-02-24] MEDS: VENLAFAXINE HCL 50MG TABLET PO SCH ×2 (09:02→16:49)
[2019-02-24] MEDS: DOCUSATE SODIUM 100MG CAPSULE PO SCH ×2 (09:02→16:48)
[2019-02-24] MEDS: FERROUS SULFATE 325MG TABLET PO SCH ×3 (09:03→16:48)
[2019-02-24] MEDS: ARIPIPRAZOLE 5MG TABLET PO SCH (09:03)
[2019-02-24] MEDS: FUROSEMIDE 20MG TABLET PO SCH ×2 (09:04→20:25)
[2019-02-24] MEDS: HYDROXYUREA 500MG CAPSULE PO SCH (09:07)
[2019-02-24] MEDS: FAMOTIDINE 20MG TABLET PO SCH ×2 (09:08→20:25)
[2019-02-24] MEDS: VILAZODONE 40 MG XX SCH (09:08)
[2019-02-24 12:39] LABS: PLATELET ESTIMATE INCREASED
[2019-02-24] MEDS: ERGOCALCIFEROL 50000UNITS CAPSULE PO SCH (16:48)
[2019-02-24 20:00] VITALS: BP 110/53
[2019-02-24] MEDS: TRAZODONE HCL 50MG TABLET PO SCH (20:25)
[2019-02-25 08:00] VITALS: BP 121/71
[2019-02-25] MEDS: CLONAZEPAM 0.5MG TABLET PO SCH (09:00)
[2019-02-25] MEDS: FERROUS SULFATE 325MG TABLET PO SCH (10:13)
[2019-02-25] MEDS: FUROSEMIDE 20MG TABLET PO SCH (10:13)
[2019-02-25] MEDS: FAMOTIDINE 20MG TABLET PO SCH (10:13)
[2019-02-25] MEDS: ARIPIPRAZOLE 5MG TABLET PO SCH (10:13)
[2019-02-25] MEDS: LAMOTRIGINE 100MG TABLET PO SCH (10:13)
[2019-02-25] MEDS: DOCUSATE SODIUM 100MG CAPSULE PO SCH (10:14)
[2019-02-25] MEDS: VILAZODONE 40 MG XX SCH (10:14)
[2019-02-25] MEDS: VENLAFAXINE HCL 50MG TABLET PO SCH (10:14)
[2019-02-25] MEDS: POLYETHYLENE GLYCOL 3350 (17GM) 1 DOSE PACK PO SCH (10:15)
[2019-02-25] MEDS: HYDROXYUREA 500MG CAPSULE PO SCH (10:15)
[2019-02-25 12:56] VITALS: BP 121/71
== END 2019-02-25 14:15 | disposition home health service (06) | DRG 536 ==
PROVIDERS: ADMIT Physical Medicine & Rehabilitation Spinal Cord Injury Medicine; ATTEND Internal Medicine
DX: S72.011A Unspecified intracapsular fracture of right femur, initial encounter for closed fracture (principal); D62 Acute posthemorrhagic anemia; E44.1 Mild protein-calorie malnutrition; F31.81 Bipolar II disorder; W01.0XXA Fall on same level from slipping, tripping and stumbling without subsequent striking against object, initial encounter; R53.81 Other malaise; R79.89 Other specified abnormal findings of blood chemistry; R74.0 Nonspecific elevation of levels of transaminase and lactic acid dehydrogenase [LDH]; D50.9 Iron deficiency anemia, unspecified; F41.9 Anxiety disorder, unspecified; K21.9 Gastro-esophageal reflux disease without esophagitis; Y93.01 Activity, walking, marching and hiking; E55.9 Vitamin D deficiency, unspecified; D72.829 Elevated white blood cell count, unspecified; D45 Polycythemia vera; Z98.84 Bariatric surgery status; Z90.710 Acquired absence of both cervix and uterus; Z79.899 Other long term (current) drug therapy; Z68.25 Body mass index [BMI] 25.0-25.9, adult; Y92.89 Other specified places as the place of occurrence of the external cause; Y99.8 Other external cause status
CPT/HCPCS: 36415; 73502; 83735; 84100; 84134; 92610; 93970; 97110; 97116; 97150; 97162; 97166; 97530; 97535